=== PATIENT | female | born 1945 | race Caucasian/White ===

== ENCOUNTER 2022-05-02 18:10 | Emergency (ER) | payer OTHER, MEDICARE ==
[~2022-05-02] VITALS: Ht 157.5 cm; Wt 68.0 kg
[2022-05-02 18:22] VITALS: BP_SYST 133
--- NOTE | 2022-05-02 18:37 | NUR ---
PT B/B AMBULANCE FROM HOME FOR VIGINAL PAIN RADIATED TO LOWER ABDOMEN. PT IS A/OX4, SPEAKS FULL SENTENCES, FOLLOWS COMMAND, DENIES MESA AND DIZZINESS. NO SOB. BREATHING EVEN. SL ESTABLISHED ON RFA 20G. BLOOD DRAWN BY THE WAY.
[2022-05-02 19:28] LABS: BASOPHILS # (AUTO) 0.2 K/uL (0.0-0.2); BASOPHILS % (AUTO) 2.2 % (0.0-2.0); EOSINOPHILS # (AUTO) 0.3 K/uL (0.0-0.4); EOSINOPHILS % (AUTO) 2.9 % (0.0-4.0); HEMATOCRIT 33.5 % (36-48); HEMOGLOBIN 10.8 g/dL (12.0-16.0); LYMPHOCYTES # (AUTO) 2.5 K/uL (1.0-5.5); MEAN CORPUSCULAR HEMOGLOBIN 26 pg (27-31); MEAN CORPUSCULAR HGB CONC 32 % (32-36); MEAN CORPUSCULAR VOLUME 80 fL (79.0-98.0); MONOCYTES # (AUTO) 0.4 K/uL (0.0-1.0); MONOCYTES % (AUTO) 3.4 % (1.7-9.3); NEUTROPHILS # (AUTO) 7.5 K/uL (1.8-7.7); NEUTROPHILS % (AUTO) 68.5 % (40.0-70.0); PLATELET COUNT (AUTO) 299 K/uL (130-430); RED BLOOD CELL COUNT(AUTO) 4.19 MIL/uL (4.2-6.2); RED CELL DISTRIBUTION WIDTH 17.1 % (9.0-15.0)
[2022-05-02 19:32] LABS: ANION GAP 10 (5-15); CALCIUM 8.6 mg/dL (8.4-11.0); CHLORIDE 101 mmol/L (98-107); CREATININE 1.08 mg/dL (0.55-1.30); GLUCOSE 366 mg/dL (70-99); POTASSIUM 4.2 mmol/L (3.5-5.1); UREA NITROGEN, BLOOD 23 mg/dL (8-21)
[2022-05-02 19:37] LABS: ALANINE AMINOTRANSFERASE 28 U/L (12-78); ALBUMIN 3.5 g/dL (3.4-4.8); ASPARTATE AMINOTRANSFERASE 14 U/L (10-37); TOTAL BILIRUBIN 0.1 mg/dL (0.0-1.0)
[2022-05-02 20:32] LABS: BILIRUBIN,URINE NEGATIVE (NEGATIVE); BLOOD, URINE NEGATIVE (NEGATIVE); CLARITY/URINE CLEAR (CLEAR); COLOR,URINE YELLOW (YELLOW); GLUCOSE,URINE 3+ (NEGATIVE); KETONES,URINE NEGATIVE (NEGATIVE); NITRITE, URINE NEGATIVE (NEGATIVE); PH,URINE 5.5 (5.0-8.0); PROTEIN URINE NEGATIVE (NEGATIVE); UROBILINOGEN,URINE 0.2 (0.2-1.0)
[2022-05-02 20:43] LABS: LEUKOCYTE ESTERASE ,URINE TRACE (NEGATIVE)
[2022-05-02 20:44] LABS: BACTERIA,URINE FEW /HPF (None Seen); MUCUS,URINE None Seen /LPF (None Seen); RBC,URINE 0-3 /HPF (0-3)
[2022-05-02] MEDS ORDERED: CEPH-548 PO (21:08)
[2022-05-02] MEDS ORDERED: POLY17PO4 PO (21:08)
--- NOTE | 2022-05-02 21:51 | NUR ---
PT DIAPER WET, CHANGED AND PROVIDED CLEAN NEW DIAPER
--- NOTE | 2022-05-02 21:52 | NUR ---
PT PENDING DISHCHARGE, WAITING FOR RIDE
--- NOTE | 2022-05-02 22:30 | NUR ---
Patient resting quietly. No acute distress noted. Vital signs within normal range.
[2022-05-03 01:05] VITALS: BP_SYST 150
--- NOTE | 2022-05-03 01:05 | NUR ---
Patient given written and verbal discharge instructions and verbalizes understanding. ER MD discussed with patient the results and treatment provided. Patient in stable condition. ID arm band removed. IV catheter removed intact and dressing applied, no active bleeding. Rx of miralax & keflex given. Patient educated on pain management and to follow up with PMD. Pain Scale 0/10. Opportunity for questions provided and answered. Medication side effect fact sheet provided.
== END 2022-05-03 01:05 | disposition home or self-care (01) ==
LOC: SED 18:10
DX: N30.00 Acute cystitis without hematuria (principal); R10.30 Lower abdominal pain, unspecified; R30.0 Dysuria; E11.9 Type 2 diabetes mellitus without complications; E78.5 Hyperlipidemia, unspecified; Z88.1 Allergy status to other antibiotic agents; Z91.041 Radiographic dye allergy status; Z79.899 Other long term (current) drug therapy
CPT/HCPCS: 36415; 76376; 80053; 81000; 85025; 86886; 86900; 86901; 99284

== ENCOUNTER 2022-08-04 17:01 | Emergency (ER) | payer OTHER, MEDICARE ==
[~2022-08-04] VITALS: Ht 152.4 cm; Wt 68.0 kg
[~2022-08-04 17:01] MED LIST: CEPH-548 PO; POLY17PO4 PO
[2022-08-04 17:04] VITALS: BP_SYST 118
--- NOTE | 2022-08-04 17:08 | NUR ---
Patient triaged and placed in waiting room. VSS and patient appears in no acute distress at this time. Accompanied by BLS, awaiting available bed, and MD notified of need for MSE.
--- NOTE | 2022-08-04 17:54 | NUR ---
PT EVALUATED BY BECKY LOUIE, TAKEN TO WAITING ROOM WITH WALKER. PT WITH STEADY GAIT WITH USE OF WALKER
[2022-08-04] MEDS ORDERED: ONDANSETRON HCL 4 MG/2 ML VIAL IVP ONE (18:00)
[2022-08-04] MEDS ORDERED: NS 500 ML IV ONE (18:00)
[2022-08-04] MEDS ORDERED: MORPHINE 4 MG INJ. 4 MG/ML VIAL IVP ONE (18:00)
[2022-08-04 18:21] LABS: BASOPHILS # (AUTO) 0.1 K/uL (0.0-0.2); BASOPHILS % (AUTO) 0.6 % (0.0-2.0); EOSINOPHILS # (AUTO) 0.4 K/uL (0.0-0.4); EOSINOPHILS % (AUTO) 3.3 % (0.0-4.0); HEMOGLOBIN 10.6 g/dL (12.0-16.0); LYMPHOCYTES # (AUTO) 3.1 K/uL (1.0-5.5); LYMPHOCYTES % (AUTO) 26.8 % (20.5-51.5); MEAN CORPUSCULAR HEMOGLOBIN 23 pg (27-31); MEAN CORPUSCULAR HGB CONC 31 % (32-36); MEAN CORPUSCULAR VOLUME 75 fL (79.0-98.0); MONOCYTES # (AUTO) 0.6 K/uL (0.0-1.0); MONOCYTES % (AUTO) 5.5 % (1.7-9.3); NEUTROPHILS # (AUTO) 7.4 K/uL (1.8-7.7); NEUTROPHILS % (AUTO) 63.8 % (40.0-70.0); PLATELET COUNT (AUTO) 348 K/uL (130-430); RED BLOOD CELL COUNT(AUTO) 4.53 MIL/uL (4.2-6.2); RED CELL DISTRIBUTION WIDTH 17.3 % (9.0-15.0); WHITE BLOOD COUNT (AUTO) 11.6 K/uL (4.8-10.8)
[2022-08-04 18:29] LABS: ANION GAP 9 (5-15); CALCIUM 9.1 mg/dL (8.4-11.0); CHLORIDE 103 mmol/L (98-107); CREATININE 0.74 mg/dL (0.55-1.30); GLUCOSE 249 mg/dL (70-99); UREA NITROGEN, BLOOD 17 mg/dL (8-21)
[2022-08-04 18:35] LABS: ALANINE AMINOTRANSFERASE 23 U/L (12-78); ALBUMIN 3.4 g/dL (3.4-4.8); ASPARTATE AMINOTRANSFERASE 13 U/L (10-37); TOTAL BILIRUBIN 0.2 mg/dL (0.0-1.0)
--- NOTE | 2022-08-04 19:00 | NUR ---
Report received from day shift RN for continuity of care. Patient resting. VSS.
[2022-08-04] MEDS ORDERED: ONDA-8 TL (19:39)
[2022-08-04] MEDS ORDERED: ACET-2634 PO (19:39)
[2022-08-04] MEDS ORDERED: DOCU250C14 PO (19:39)
[2022-08-04] MEDS ORDERED: LIDO1ADH71 TD (19:39)
[2022-08-04] MEDS ORDERED: TRAM50TA2 PO ×2 (19:39→19:40)
[2022-08-04] MEDS ORDERED: HYDROcodone/ACETAMIN 5-325 MG TAB (NORCO/ VICODIN) PO ONE (20:30)
--- NOTE | 2022-08-05 03:10 | NUR ---
Patient ambulated from bed to restroom. Vital signs stable. Patient ok walking with assistance. Will continue to monitor. Awaiting transportation.
--- NOTE | 2022-08-05 04:52 | NUR ---
Called [facility] for update. Was told that [facility] to come take patient.
--- NOTE | 2022-08-05 05:01 | NUR ---
Report given to GAIL Monroe for continuity of care. Patient to go to [facility].
--- NOTE | 2022-08-05 05:02 | NUR ---
Patient given written and verbal discharge instructions and verbalizes understanding. ER MD discussed with patient the results and treatment provided. Patient in stable condition. ID arm band removed. IV catheter removed intact and dressing applied, no active bleeding. Patient discharged to [facility]. Opportunity for questions provided and answered. Medication side effect fact sheet provided.
[2022-08-05 05:25] VITALS: BP_SYST 179
== END 2022-08-05 05:25 | disposition home or self-care (01) ==
LOC: SED 17:01
DX: S70.01XA Contusion of right hip, initial encounter (principal); E11.9 Type 2 diabetes mellitus without complications; Z88.1 Allergy status to other antibiotic agents; Z91.041 Radiographic dye allergy status; Z79.899 Other long term (current) drug therapy; W18.30XA Fall on same level, unspecified, initial encounter; Y93.89 Activity, other specified; Y92.89 Other specified places as the place of occurrence of the external cause; Y99.8 Other external cause status
CPT/HCPCS: 36415; 70450-TC; 73502; 76376; 80053; 84484; 85025; 93005; 99285

== ENCOUNTER 2022-08-17 01:29 | Inpatient (IN) | payer OTHER, MEDICARE ==
[~2022-08-17] VITALS: Ht 152.4 cm; Wt 96.6 kg
[2022-08-17] VITALS (7 sets, daily range): BP systolic 123–162
[~2022-08-17 01:29] MED LIST changes: +ACET-2634 PO; +DOCU250C14 PO; +LIDO1ADH71 TD; +ONDA-8 TL; +TRAM50TA2 PO
--- NOTE | 2022-08-17 02:18 | NUR ---
[facility] [id number]. No rooms available at this time. Pt in waiting.
[2022-08-17] MEDS ORDERED: cefTRIAXone 1 GM IVPB PREMIX 50 ML IV ONE (03:15)
[2022-08-17 03:20] LABS: BASOPHILS % (AUTO) 0.4 % (0.0-2.0); EOSINOPHILS # (AUTO) 0.3 K/uL (0.0-0.4); EOSINOPHILS % (AUTO) 2.9 % (0.0-4.0); HEMATOCRIT 32.1 % (36-48); HEMOGLOBIN 9.9 g/dL (12.0-16.0); LYMPHOCYTES # (AUTO) 2.4 K/uL (1.0-5.5); LYMPHOCYTES % (AUTO) 23.6 % (20.5-51.5); MEAN CORPUSCULAR HEMOGLOBIN 23 pg (27-31); MEAN CORPUSCULAR HGB CONC 31 % (32-36); MEAN CORPUSCULAR VOLUME 75 fL (79.0-98.0); MONOCYTES # (AUTO) 0.7 K/uL (0.0-1.0); MONOCYTES % (AUTO) 6.8 % (1.7-9.3); NEUTROPHILS # (AUTO) 6.8 K/uL (1.8-7.7); NEUTROPHILS % (AUTO) 66.3 % (40.0-70.0); PLATELET COUNT (AUTO) 338 K/uL (130-430); RED BLOOD CELL COUNT(AUTO) 4.27 MIL/uL (4.2-6.2); WHITE BLOOD COUNT (AUTO) 10.3 K/uL (4.8-10.8)
--- NOTE | 2022-08-17 03:38 | NUR ---
Report given to FATIMAH Watts. Pt placed in bed 6.
[2022-08-17 03:40] LABS: ANION GAP 13 (5-15); CALCIUM 8.7 mg/dL (8.4-11.0); CHLORIDE 104 mmol/L (98-107); CREATININE 0.67 mg/dL (0.55-1.30); GLUCOSE 283 mg/dL (70-99); UREA NITROGEN, BLOOD 17 mg/dL (8-21)
[2022-08-17 03:45] LABS: ALANINE AMINOTRANSFERASE 26 U/L (12-78); ALBUMIN 3.3 g/dL (3.4-4.8); ASPARTATE AMINOTRANSFERASE 15 U/L (10-37); TOTAL BILIRUBIN 0.2 mg/dL (0.0-1.0)
[2022-08-17] MEDS ORDERED: NACL 0.9% 1,000 ML IV ONE (04:45)
[2022-08-17] MEDS ORDERED: KETOROLAC TROMETHAMINE 30 MG VIAL IVP ONE (05:00)
--- NOTE | 2022-08-17 05:24 | NUR ---
Admit bed requested Patient will be admitted to care of . Admitted to Telemetry unit. Diagnosis Pneumonia, Sepsis Inpatient (Yes or No) Yes Observation (Yes or No) No Orientation concerns or request close to nursing station (Yes or No) No Covid Status Negative On vent or bipap No Isolation requirements Standard Needs a sitter No From Home (Yes or if No enter name of facility) Yes Requires Dialysis (Yes or No) No Med Rec Completed (Yes of No) Yes
[2022-08-17] MEDS: INSULIN REGULAR, HUMAN 100 UNITS/ML, 3 ML VIAL (humuLIN R) SUBCUT PRN ×3 (07:06→16:47)
--- NOTE | 2022-08-17 07:23 | NUR ---
Report given to day shift RN for continuity of care. Patient stable condition.
[2022-08-17 07:54] LABS: BILIRUBIN,URINE NEGATIVE (NEGATIVE); BLOOD, URINE NEGATIVE (NEGATIVE); CLARITY/URINE CLEAR (CLEAR); COLOR,URINE YELLOW (YELLOW); GLUCOSE,URINE 3+ (NEGATIVE); KETONES,URINE TRACE (NEGATIVE); LEUKOCYTE ESTERASE ,URINE NEGATIVE (NEGATIVE); NITRITE, URINE NEGATIVE (NEGATIVE); PROTEIN URINE NEGATIVE (NEGATIVE); UROBILINOGEN,URINE 0.2 (0.2-1.0)
--- NOTE | 2022-08-17 08:08 | NUR ---
ON DUTY RECEIVED THIS PT A/OX4, NO ACUTE DISTRESS. PT WAS ADMITED TO TELE. PT WALKED TO BATH @0745 IN STEADY GAIT. ROOM OBTAINED 119B. PT WAS SEND TO FLOOR IN [facility] WITH EMT ANJALI.
[2022-08-17 08:51] LABS: BACTERIA,URINE FEW /HPF (None Seen); MUCUS,URINE 1+ /LPF (None Seen); RBC,URINE 0-3 /HPF (0-3)
[2022-08-17] MEDS ORDERED: TRAZ-250 PO (09:58)
[2022-08-17] MEDS ORDERED: VENL37.55 PO (09:59)
[2022-08-17] MEDS ORDERED: OLAN5TAB3 PO (10:00)
[2022-08-17] MEDS ORDERED: CLOP75TA32 PO (10:01)
[2022-08-17] MEDS ORDERED: HYDR-3917 PO (10:02)
[2022-08-17] MEDS ORDERED: MOM PO (10:03)
[2022-08-17] MEDS ORDERED: MECL-225 PO (10:05)
[2022-08-17] MEDS ORDERED: LORA-259 PO (10:05)
[2022-08-17] MEDS ORDERED: INSU100V9 SQ (10:07)
[2022-08-17] MEDS ORDERED: LIP80 PO (10:07)
[2022-08-17] MEDS ORDERED: ASPI-858 PO (10:08)
[2022-08-17] MEDS ORDERED: ACET325T PO (10:08)
[2022-08-17] MEDS ORDERED: ACET325C6 PO (10:09)
[2022-08-17] MEDS ORDERED: ALBMDI INH (10:12)
--- NOTE | 2022-08-17 10:58 | NUR ---
CALLED LAB S/W DOROTHY MARIEE HAS LEFT OVER URINE AND WILL BE RUN FOR URINE CULTURE. DR. MELLO ESCOBAR. Addendum: 08/17/22 at 1814 by [facility] Giuliano Frazier RN RN AT 1600 SENT ADDITIONAL URINE TO LAB TO COMPLETE URINE CULTURE TEST.
[2022-08-17] MEDS ORDERED: NALOXONE HCL 0.4 MG/ML AMP (NARCAN) IVP PRN (11:00)
[2022-08-17] MEDS ORDERED: LORazepam 1 MG TABLET PO PRN (11:00)
[2022-08-17] MEDS ORDERED: ASPIRIN 81 MG TAB.CHEW PO ONE (11:00)
[2022-08-17] MEDS ORDERED: ALBUTEROL MDI INHALATION 8 GM INH INH PRN (11:00)
[2022-08-17] MEDS ORDERED: ASPIRIN 325 MG TABLET PO ONE (11:00)
[2022-08-17] MEDS ORDERED: POLYETHYLENE GLYCOL 3350, 17 GM/ POWD.PACK PO PRN (11:00)
[2022-08-17] MEDS ORDERED: ACETAMINOPHEN 325 MG TABLET PO PRN ×2 (11:00)
[2022-08-17] MEDS ORDERED: MILK OF MAGNESIA 30 ML UDC PO ONE (11:15)
[2022-08-17] MEDS ORDERED: CLOPIDOGREL BISULFATE 75 MG TABLET PO ONE (11:15)
[2022-08-17] MEDS ORDERED: Effexor XR 37.5 MG PO ONE (11:15)
[2022-08-17] MEDS ORDERED: OLANZapine 5 MG TABLET PO ONE (11:30)
[2022-08-17] MEDS ORDERED: ALBUTEROL SULFATE 0.083% 2.5 MG/3 ML VIAL.NEB INH PRN (11:30)
[2022-08-17] MEDS: cefTRIAXone 1 GM in D5W 50 ML IV SCH (11:30)
[2022-08-17] MEDS: HYDROcodone/ACETAMIN 5-325 MG TAB (NORCO/ VICODIN) PO PRN (12:08)
[2022-08-17 12:10] LABS: TOTAL IRON BIND. CAPACITY 343 ug/dL (250-450)
[2022-08-17] MEDS: AZITHROMYCIN 500 MG in NS 250 ML IV SCH (12:20)
--- NOTE | 2022-08-17 18:14 | NUR ---
CLOSING NOTE: PT IS A/A/OX4. ADMITTED PER PROTOCOL. ON RA SATURATING 98%, NO DISTRESS NOTED. ANTIBIOTIC THERAPY ORDERED. ALL CARE NEEDS MET THROUGHOUT THE SHIFT. FALL PROTOCOL. CALL LIGHT W/IN REACH. BED IN LOW POSITION. WILL ENDORSE CARE TO PM NURSE.
[2022-08-17] MEDS: INSULIN GLARGINE 100 UNITS/ML, 10 ML VIAL SUBCUT SCH (21:16)
[2022-08-17] MEDS: traZODone HCL 50 MG TABLET (DESYREL) PO SCH (21:18)
[2022-08-17] MEDS: ATORVASTATIN 20 MG TABLET PO SCH (21:18)
[2022-08-18] VITALS: BP_SYST 131
[2022-08-18 04:00] VITALS: BP_SYST 127
[2022-08-18] MEDS: INSULIN REGULAR, HUMAN 100 UNITS/ML, 3 ML VIAL (humuLIN R) SUBCUT PRN ×3 (06:35→17:13)
--- NOTE | 2022-08-18 07:25 | NUR ---
OPENING NOTE; PT RESTING IN BED, BREATHING EVEN AND NON-LABORED. DENIES ANY PAIN OR DISCOMFORT. BED IS LOCKED AND AT LOW POSITION. CALL LIGHT WITHIN REACH. BED ALARM ON. ENCOURAGED TO USE CALL LIGHT FOR ASSISTANCE. WILL CONT TO MONITOR.
--- NOTE | 2022-08-18 07:50 | NUR ---
PT LEFT FOR 1ST PART OF STRESS TEST. Addendum: 08/18/22 at 1842 by Shelly Brice RN WRONG PATIENT
[2022-08-18 07:55] LABS: BASOPHILS # (AUTO) 0.1 K/uL (0.0-0.2); BASOPHILS % (AUTO) 0.6 % (0.0-2.0); EOSINOPHILS # (AUTO) 0.3 K/uL (0.0-0.4); EOSINOPHILS % (AUTO) 3.2 % (0.0-4.0); HEMATOCRIT 34.8 % (36-48); HEMOGLOBIN 10.9 g/dL (12.0-16.0); LYMPHOCYTES % (AUTO) 19.7 % (20.5-51.5); MEAN CORPUSCULAR HEMOGLOBIN 24 pg (27-31); MEAN CORPUSCULAR HGB CONC 31 % (32-36); MEAN CORPUSCULAR VOLUME 76 fL (79.0-98.0); MONOCYTES # (AUTO) 0.5 K/uL (0.0-1.0); MONOCYTES % (AUTO) 4.9 % (1.7-9.3); NEUTROPHILS # (AUTO) 7.1 K/uL (1.8-7.7); NEUTROPHILS % (AUTO) 71.6 % (40.0-70.0); PLATELET COUNT (AUTO) 320 K/uL (130-430); RED BLOOD CELL COUNT(AUTO) 4.59 MIL/uL (4.2-6.2); RED CELL DISTRIBUTION WIDTH 17.3 % (9.0-15.0); WHITE BLOOD COUNT (AUTO) 9.9 K/uL (4.8-10.8)
[2022-08-18 08:00] VITALS: BP_SYST 117
[2022-08-18 08:06] LABS: ALANINE AMINOTRANSFERASE 31 U/L (12-78); ALBUMIN 3.2 g/dL (3.4-4.8); ANION GAP 11 (5-15); ASPARTATE AMINOTRANSFERASE 21 U/L (10-37); CALCIUM 8.8 mg/dL (8.4-11.0); CHLORIDE 106 mmol/L (98-107); CREATININE 0.65 mg/dL (0.55-1.30); GLUCOSE 232 mg/dL (70-99); TOTAL BILIRUBIN 0.3 mg/dL (0.0-1.0); UREA NITROGEN, BLOOD 11 mg/dL (8-21)
[2022-08-18] MEDS: MILK OF MAGNESIA 30 ML UDC PO SCH (08:41)
[2022-08-18] MEDS: ASPIRIN 81 MG TAB.CHEW PO SCH (08:41)
[2022-08-18] MEDS: CLOPIDOGREL BISULFATE 75 MG TABLET PO SCH (08:41)
[2022-08-18] MEDS: OLANZapine 5 MG TABLET PO SCH (08:42)
[2022-08-18] MEDS: Effexor XR 37.5 MG PO SCH (09:34)
--- NOTE | 2022-08-18 11:00 | NUR ---
NOTES; PT AMBULATES TO BATHROOM WITH ASSISTANCE OF REGISTERED PHARMACY TECHNICIAN. STEADY GAIT.
[2022-08-18] MEDS: cefTRIAXone 1 GM in D5W 50 ML IV SCH (11:38)
[2022-08-18] MEDS: AZITHROMYCIN 500 MG in NS 250 ML IV SCH (11:42)
[2022-08-18 13:16] VITALS: BP_SYST 146
[2022-08-18] MEDS: HYDROcodone/ACETAMIN 5-325 MG TAB (NORCO/ VICODIN) PO PRN ×2 (14:08→22:00)
--- NOTE | 2022-08-18 16:00 | NUR ---
MD ROUNDS; AT BEDSIDE, ASSESSING PT
--- NOTE | 2022-08-18 17:20 | NUR ---
NEW PIV TO LEFT HAND 24G. PREVIOUS IV WAS LEAKING. PT TOLERATED WELL. FLUSHED WITH 10CC NS AND GOOD BLOOD RETURN NOTED. WILL CONT TO MONITOR
[2022-08-18 18:43] VITALS: BP_SYST 145
--- NOTE | 2022-08-18 18:45 | NUR ---
CLOSING NOTE; PT RESTING IN BED, BREATHING EVEN AND NON-LABORED. IV KEPT PATENT AND INTACT. NO IV INFILTRATION OR INFECTION NOTED. BED IS LOCKED AND AT LOW POSITION. CALL LIGHT WITHIN REACH. SAFETY PRECAUTION IN PLACE. WILL ENDORSE CARE TO CEMENT MIXER NURSE.
[2022-08-18 20:00] VITALS: BP_SYST 135
[2022-08-18] MEDS: traZODone HCL 50 MG TABLET (DESYREL) PO SCH (21:05)
[2022-08-18] MEDS: ATORVASTATIN 20 MG TABLET PO SCH (21:06)
[2022-08-18] MEDS: MUPIROCIN 2% TOPICAL OINTMENT 22 GM NS SCH (21:06)
[2022-08-18] MEDS: INSULIN GLARGINE 100 UNITS/ML, 10 ML VIAL SUBCUT SCH (21:08)
[2022-08-19] VITALS: BP_SYST 130
[2022-08-19 02:06] LABS: FOLATE (FOLIC ACID) 18.3 ng/mL (>3.0)
[2022-08-19] MEDS: INSULIN REGULAR, HUMAN 100 UNITS/ML, 3 ML VIAL (humuLIN R) SUBCUT PRN ×2 (06:36→12:17)
[2022-08-19] MEDS: HYDROcodone/ACETAMIN 5-325 MG TAB (NORCO/ VICODIN) PO PRN ×3 (08:49→13:36)
[2022-08-19] MEDS: MILK OF MAGNESIA 30 ML UDC PO SCH (08:51)
[2022-08-19] MEDS: OLANZapine 5 MG TABLET PO SCH (09:18)
[2022-08-19] MEDS: CLOPIDOGREL BISULFATE 75 MG TABLET PO SCH (09:19)
[2022-08-19] MEDS: Effexor XR 37.5 MG PO SCH (09:20)
[2022-08-19] MEDS: ASPIRIN 81 MG TAB.CHEW PO SCH (09:21)
[2022-08-19] MEDS: MUPIROCIN 2% TOPICAL OINTMENT 22 GM NS SCH (09:21)
[2022-08-19 11:43] VITALS: BP_SYST 144
[2022-08-19] MEDS: AZITHROMYCIN 500 MG in NS 250 ML IV SCH (12:22)
[2022-08-19] MEDS: cefTRIAXone 1 GM in D5W 50 ML IV SCH (12:22)
[2022-08-19] MEDS ORDERED: DOXY100C5 PO (13:41)
[2022-08-19 13:58] VITALS: BP_SYST 144
--- NOTE | 2022-08-19 16:29 | NUR ---
CM: Late entry: faxed referral to [facility] attn Andrew tel # [phone], fax # [phone]. The patient is accepted , Andrew will call patient once received the auth from [facility].
== END 2022-08-19 15:50 | disposition home health service (06) | DRG 202 ==
LOC: SED 01:29 → STU 04:50
PROVIDERS: ADMIT Internal Medicine; ATTEND Internal Medicine
DX: J45.901 Unspecified asthma with (acute) exacerbation (principal); J18.9 Pneumonia, unspecified organism; N39.0 Urinary tract infection, site not specified; E44.1 Mild protein-calorie malnutrition; Z68.41 Body mass index [BMI] 40.0-44.9, adult; Z20.822 Contact with and (suspected) exposure to COVID-19; E78.5 Hyperlipidemia, unspecified; E78.00 Pure hypercholesterolemia, unspecified; D64.9 Anemia, unspecified; Z86.73 Personal history of transient ischemic attack (TIA), and cerebral infarction without residual deficits; Z88.8 Allergy status to other drugs, medicaments and biological substances; Z88.1 Allergy status to other antibiotic agents; Z91.041 Radiographic dye allergy status; Z91.013 Allergy to seafood; Z79.899 Other long term (current) drug therapy; Z90.49 Acquired absence of other specified parts of digestive tract; Z90.710 Acquired absence of both cervix and uterus
CPT/HCPCS: 36415; 71045; 71250-TC; 76376; 80053; 81000; 82607; 82746; 82962; 83540; 83550; 83605; 83880; 84484; 85025; 85379; 85610-TC; 85730-TC; 87040; 87081; 87086; 93005; 93970; 96365; 96375; 97116-GP; 97163-GP; 99291; G0378; J0456; J0696; J1815; J1885; J7050; J7060

== ENCOUNTER 2022-08-23 22:47 | Emergency (ER) | payer OTHER, MEDICARE ==
[~2022-08-23] VITALS: Ht 152.4 cm; Wt 72.6 kg
[2022-08-23 22:47] VITALS: BP_SYST 145
[~2022-08-23 22:47] MED LIST changes: -ACET-2634 PO; +ACET325C6 PO; +ACET325T PO; +ALBMDI INH; +ASPI-858 PO; -CEPH-548 PO; +CLOP75TA32 PO; -DOCU250C14 PO; +DOXY100C5 PO; +HYDR-3917 PO; +INSU100V9 SQ; -LIDO1ADH71 TD; +LIP80 PO; +LORA-259 PO; +MECL-225 PO; +MOM PO; +OLAN5TAB3 PO; -ONDA-8 TL; -TRAM50TA2 PO; +TRAZ-250 PO; +VENL37.55 PO
--- NOTE | 2022-08-23 23:24 | NUR ---
Patient placed in ER bed 7. Bed in lowest position, side rails up.
--- NOTE | 2022-08-23 23:40 | NUR ---
Dr. Ledesma at bedside examining the patient.
[2022-08-23 23:41] LABS: BASOPHILS # (AUTO) 0.2 K/uL (0.0-0.2); BASOPHILS % (AUTO) 1.9 % (0.0-2.0); EOSINOPHILS # (AUTO) 0.4 K/uL (0.0-0.4); EOSINOPHILS % (AUTO) 2.7 % (0.0-4.0); HEMATOCRIT 32.2 % (36-48); HEMOGLOBIN 9.9 g/dL (12.0-16.0); LYMPHOCYTES # (AUTO) 2.4 K/uL (1.0-5.5); LYMPHOCYTES % (AUTO) 18.6 % (20.5-51.5); MEAN CORPUSCULAR HEMOGLOBIN 23 pg (27-31); MEAN CORPUSCULAR HGB CONC 31 % (32-36); MEAN CORPUSCULAR VOLUME 75 fL (79.0-98.0); MONOCYTES # (AUTO) 0.5 K/uL (0.0-1.0); MONOCYTES % (AUTO) 3.8 % (1.7-9.3); NEUTROPHILS # (AUTO) 9.6 K/uL (1.8-7.7); PLATELET COUNT (AUTO) 365 K/uL (130-430); RED BLOOD CELL COUNT(AUTO) 4.29 MIL/uL (4.2-6.2); RED CELL DISTRIBUTION WIDTH 17.7 % (9.0-15.0); WHITE BLOOD COUNT (AUTO) 13.1 K/uL (4.8-10.8)
[2022-08-23 23:58] LABS: ANION GAP 6 (5-15); CALCIUM 9.4 mg/dL (8.4-11.0); CHLORIDE 106 mmol/L (98-107); CREATININE 0.87 mg/dL (0.55-1.30); GLUCOSE 274 mg/dL (70-99); UREA NITROGEN, BLOOD 22 mg/dL (8-21)
[2022-08-24 00:02] LABS: ALANINE AMINOTRANSFERASE 21 U/L (12-78); ALBUMIN 3.3 g/dL (3.4-4.8); ASPARTATE AMINOTRANSFERASE 11 U/L (10-37); LIPASE 67 U/L (73-393); TOTAL BILIRUBIN 0.2 mg/dL (0.0-1.0)
--- NOTE | 2022-08-24 00:34 | NUR ---
Portable x-ray done at bedside.
[2022-08-24 01:33] LABS: BILIRUBIN,URINE NEGATIVE (NEGATIVE); BLOOD, URINE NEGATIVE (NEGATIVE); CLARITY/URINE CLEAR (CLEAR); COLOR,URINE YELLOW (YELLOW); GLUCOSE,URINE 2+ (NEGATIVE); KETONES,URINE NEGATIVE (NEGATIVE); LEUKOCYTE ESTERASE ,URINE TRACE (NEGATIVE); NITRITE, URINE NEGATIVE (NEGATIVE); PH,URINE 5.5 (5.0-8.0); PROTEIN URINE NEGATIVE (NEGATIVE); UROBILINOGEN,URINE 0.2 (0.2-1.0)
[2022-08-24 01:54] LABS: BACTERIA,URINE FEW /HPF (None Seen); MUCUS,URINE None Seen /LPF (None Seen); WBC,URINE 0-3 /HPF (0-3)
[2022-08-24] MEDS ORDERED: KETOROLAC TROMETHAMINE 15 MG VIAL IVP ONE (02:45)
[2022-08-24] MEDS ORDERED: CEPH-548 PO (04:29)
[2022-08-24] MEDS ORDERED: ACET-2634 PO (04:29)
[2022-08-24 06:00] VITALS: BP_SYST 141
--- NOTE | 2022-08-24 07:14 | NUR ---
Report given and care transferred to [facility] for continuity of care.
--- NOTE | 2022-08-24 07:16 | NUR ---
received report from bebeto bolton for continue of care of pt. pt noted ambulating to restroom with steady gait. no acute distress. breathing even and unlabored. no changes at this time
--- NOTE | 2022-08-24 08:31 | NUR ---
[facility] ambulance in ed to transfer back to [facility]. called facility and spoke with jovanna, made aware of pt's arrival back to facility. pt awake, verbally responsive and denies pain at this time. no acute distress noted. breathing even and unlabored
--- NOTE | 2022-08-24 08:35 | NUR ---
discharge instructions reviewed with pt,pt verbalized understanding. denies any questions. pt left via gurney and x 2 emt with no distress
== END 2022-08-24 08:34 | disposition home or self-care (01) ==
LOC: SED 22:47
DX: N39.0 Urinary tract infection, site not specified (principal); R10.31 Right lower quadrant pain; D64.9 Anemia, unspecified; D72.829 Elevated white blood cell count, unspecified; E11.9 Type 2 diabetes mellitus without complications; Z88.1 Allergy status to other antibiotic agents; Z91.041 Radiographic dye allergy status; Z79.4 Long term (current) use of insulin; Z79.899 Other long term (current) drug therapy
CPT/HCPCS: 36415; 71045; 76376; 80053; 81000; 83690; 85025; 99285

== ENCOUNTER 2022-09-19 03:45 | Emergency (ER) | payer OTHER, MEDICARE ==
[~2022-09-19] VITALS: Ht 152.4 cm; Wt 72.6 kg
[~2022-09-19 03:45] MED LIST changes: +ACET-2634 PO; +CEPH-548 PO
[2022-09-19 03:50] VITALS: BP_SYST 144
--- NOTE | 2022-09-19 03:51 | NUR ---
Placed in room [address] monitor, blood pressure machine and pulse oximeter. To gown for exam. Side rails up. Report given to Namrata SHERIDAN(reg).
--- NOTE | 2022-09-19 03:53 | NUR ---
ER at bedside examining patient.
--- NOTE | 2022-09-19 04:01 | NUR ---
pt c/o sob at facility. pt sat 96% on room air. pt c/o chest pain with sob. pt has chronic back pain. pt a/o x 4
[2022-09-19 05:01] LABS: BASOPHILS # (AUTO) 0.1 K/uL (0.0-0.2); BASOPHILS % (AUTO) 0.9 % (0.0-2.0); EOSINOPHILS # (AUTO) 0.4 K/uL (0.0-0.4); EOSINOPHILS % (AUTO) 4.1 % (0.0-4.0); HEMATOCRIT 31.3 % (36-48); HEMOGLOBIN 9.7 g/dL (12.0-16.0); LYMPHOCYTES # (AUTO) 3.4 K/uL (1.0-5.5); LYMPHOCYTES % (AUTO) 31.8 % (20.5-51.5); MEAN CORPUSCULAR HEMOGLOBIN 23 pg (27-31); MEAN CORPUSCULAR HGB CONC 31 % (32-36); MEAN CORPUSCULAR VOLUME 75 fL (79.0-98.0); MONOCYTES # (AUTO) 0.7 K/uL (0.0-1.0); MONOCYTES % (AUTO) 6.2 % (1.7-9.3); NEUTROPHILS # (AUTO) 6.1 K/uL (1.8-7.7); PLATELET COUNT (AUTO) 350 K/uL (130-430); RED BLOOD CELL COUNT(AUTO) 4.17 MIL/uL (4.2-6.2); WHITE BLOOD COUNT (AUTO) 10.7 K/uL (4.8-10.8)
[2022-09-19 05:16] LABS: ANION GAP 9 (5-15); CALCIUM 8.7 mg/dL (8.4-11.0); CHLORIDE 104 mmol/L (98-107); CREATININE 0.77 mg/dL (0.55-1.30); GLUCOSE 210 mg/dL (70-99); UREA NITROGEN, BLOOD 16 mg/dL (8-21)
[2022-09-19 05:22] LABS: ALANINE AMINOTRANSFERASE 26 U/L (12-78); ALBUMIN 3.1 g/dL (3.4-4.8); ASPARTATE AMINOTRANSFERASE 14 U/L (10-37); TOTAL BILIRUBIN 0.2 mg/dL (0.0-1.0)
[2022-09-19] MEDS ORDERED: DEXAMETHASONE SOD PHOSPHATE 10 MG/ML VIAL IVP ONE (05:30)
[2022-09-19 05:45] LABS: BILIRUBIN,URINE NEGATIVE (NEGATIVE); BLOOD, URINE NEGATIVE (NEGATIVE); COLOR,URINE YELLOW (YELLOW); GLUCOSE,URINE NEGATIVE (NEGATIVE); KETONES,URINE NEGATIVE (NEGATIVE); LEUKOCYTE ESTERASE ,URINE TRACE (NEGATIVE); NITRITE, URINE NEGATIVE (NEGATIVE); PROTEIN URINE NEGATIVE (NEGATIVE); UROBILINOGEN,URINE 0.2 (0.2-1.0)
--- NOTE | 2022-09-19 05:47 | NUR ---
pt ambulated to bathroom no shortness of breath
[2022-09-19 05:59] LABS: CLARITY/URINE HAZY (CLEAR)
[2022-09-19 06:00] LABS: BACTERIA,URINE FEW /HPF (None Seen); RBC,URINE 0-3 /HPF (0-3)
[2022-09-19] MEDS ORDERED: CEPH-548 PO (06:11)
[2022-09-19 09:53] VITALS: BP_SYST 170
--- NOTE | 2022-09-19 09:59 | NUR ---
Patient given written and verbal discharge instructions and verbalizes understanding. ER MD Vega discussed with patient the results and treatment provided. Patient in stable condition. ID arm band removed. IV catheter removed intact and dressing applied, no active bleeding. Rx of cephalexin sent to [facility]. Patient educated on pain management and to follow up with PMD. Opportunity for questions provided and answered. Medication side effect fact sheet provided. Patient a&ox4 awaiting, patient ambulates without assistance, patient denies dizziness, patient seated on bed awaiting transport, ambulance transport ETA 1030.
== END 2022-09-19 09:59 | disposition home or self-care (01) ==
LOC: SED 03:45
DX: R06.02 Shortness of breath (principal); R05.9 Cough, unspecified; E11.9 Type 2 diabetes mellitus without complications; Z88.1 Allergy status to other antibiotic agents; Z91.041 Radiographic dye allergy status; Z79.4 Long term (current) use of insulin; Z79.899 Other long term (current) drug therapy; Z20.822 Contact with and (suspected) exposure to COVID-19
CPT/HCPCS: 99285; 96374; 71250; 71045; 87426; 80053; 81000; 85025; 87086; 84484; 36415; 93005; 76376; 87804 ×2; J1100

== ENCOUNTER 2022-09-20 00:27 | Emergency (ER) | payer OTHER, MEDICARE ==
[~2022-09-20] VITALS: Ht 152.4 cm; Wt 77.1 kg
[2022-09-20 00:34] VITALS: BP_SYST 155
[2022-09-20] MEDS ORDERED: NACL 0.9% 1,000 ML IV ONE (00:45)
[2022-09-20] MEDS ORDERED: INSULIN REGULAR, HUMAN 10 UNITS/0.1 ML, 3 ML VIAL IVP ONE (00:45)
[2022-09-20 01:24] LABS: HEMOGLOBIN 10.1 g/dL (12.0-16.0); MEAN CORPUSCULAR HEMOGLOBIN 23 pg (27-31); MEAN CORPUSCULAR HGB CONC 30 % (32-36); RED BLOOD CELL COUNT(AUTO) 4.44 MIL/uL (4.2-6.2); WHITE BLOOD COUNT (AUTO) 14.6 K/uL (4.8-10.8)
[2022-09-20 01:29] LABS: BASOPHILS % (AUTO) 0.3 % (0.0-2.0); HEMATOCRIT 33.2 % (36-48); LYMPHOCYTES # (AUTO) 2.2 K/uL (1.0-5.5); LYMPHOCYTES % (AUTO) 15.1 % (20.5-51.5); MEAN CORPUSCULAR VOLUME 75 fL (79.0-98.0); MONOCYTES % (AUTO) 6.8 % (1.7-9.3); NEUTROPHILS # (AUTO) 11.3 K/uL (1.8-7.7); NEUTROPHILS % (AUTO) 77.8 % (40.0-70.0); PLATELET COUNT (AUTO) 473 K/uL (130-430)
[2022-09-20 01:45] LABS: ACETAMINOPHEN < 1 ug/mL (1-30); ALANINE AMINOTRANSFERASE 33 U/L (12-78); ALBUMIN 3.6 g/dL (3.4-4.8); ALCOHOL, BLOOD < 3 mg/dL (<10); ANION GAP 13 (5-15); ASPARTATE AMINOTRANSFERASE 16 U/L (10-37); CHLORIDE 99 mmol/L (98-107); CREATININE 1.08 mg/dL (0.55-1.30); GLUCOSE 313 mg/dL (70-99); TOTAL BILIRUBIN 0.1 mg/dL (0.0-1.0); UREA NITROGEN, BLOOD 22 mg/dL (8-21)
[2022-09-20] MEDS ORDERED: LORazepam 2 MG/ML VIAL IVP ONE ×2 (02:15→22:30)
--- NOTE | 2022-09-20 02:42 | NUR ---
Placed in room 01 . Placed on compliance monitor, blood pressure machine and pulse oximeter. To gown for exam. Side rails up. Report given to FATIMAH MERINO
--- NOTE | 2022-09-20 02:55 | NUR ---
FIRST CONTACT WITH PT. ASSESSMENT COMPLETED. PT MEDICATED PER PREVIOUS ORDER. PT COOPERATIVE AT THIS TIME WITH NO COMPLAINTS.
--- NOTE | 2022-09-20 03:15 | NUR ---
dr campos directed not to give insulin
--- NOTE | 2022-09-20 04:00 | NUR ---
pt up to bedside comode. urine sample collected.
[2022-09-20 05:55] LABS: BENZODIAZEPINE, URINE POSITIVE (NEG <=150)
[2022-09-20 05:56] LABS: OPIATE, URINE POSITIVE (NEG <=100)
[2022-09-20 05:57] LABS: BARBITURATE, URINE NEGATIVE (NEG <=200); CANNABINOID, URINE NEGATIVE (NEG <=50); COCAINE, URINE NEGATIVE (NEG <=150); METHAMPHETAMINES SCREEN,URINE NEGATIVE (NEG <=500); PHENCYCLIDINE SCREEN,URINE NEGATIVE (NEG <=25); UR TRICYCLIC ANTIDEPRESSANTS NEGATIVE (NEG <=300); URINE AMPHETAMINE NEGATIVE (NEG <=500); URINE METHADONE NEGATIVE (NEG <=200); URINE OXYCODONE SCREEN NEGATIVE (NEG <=100); URINE PROPOXYPHENE SCREEN NEGATIVE (NEG <=300)
[2022-09-20] MEDS ORDERED: LORazepam 1 MG TABLET PO ONE (15:15)
[2022-09-20] MEDS ORDERED: IBUPROFEN 600 MG TABLET PO ONE (15:15)
--- NOTE | 2022-09-20 19:20 | NUR ---
PT RESTING NAD, EVEN UNLABORED RESPIRATIONS VSS SAFETY PERCAUTIONS IN PLACE PT ASKED FOR A COMB, I LET THE PT KNOW I WILL BE ABLE TO ASSIST WITH COMBING
--- NOTE | 2022-09-20 19:30 | NUR ---
report from Jag SHERIDAN
--- NOTE | 2022-09-20 19:30 | NUR ---
report given to me from Jag RN , from report Jag stated she was suicidal came in and the pt stated according to report she was tired of living. pt seems pleasant is asked about where she will be placed and asked for a comb. I let the pt know I will assist with her hair combing due to her situation and also will update her on any information I get. pt nad, even unlabored respirations, safety percautions up.
--- NOTE | 2022-09-20 21:31 | NUR ---
PT ASKED ME TO CONNECT CELL PHONE TO COMPUTER PROGRAMMER ANALYST, CELL PHONE AT NURSES STATION CHARGING.
[2022-09-20] MEDS ORDERED: OLANZapine IntraMuscular 10 MG VIAL (FOR I.M. INJECTION ONLY) IM ONE (22:30)
[2022-09-20] MEDS ORDERED: traZODone HCL 50 MG TABLET (DESYREL) PO PRN (22:30)
[2022-09-21] MEDS ORDERED: OLANZapine 5 MG TABLET ONE (00:06)
[2022-09-21] MEDS ORDERED: traZODone HCL 50 MG TABLET (DESYREL) ONE (00:09)
--- NOTE | 2022-09-21 03:00 | NUR ---
pt asleep no changes, safety rails up nad, even unlabored respirations.
[2022-09-21] MEDS ORDERED: PROCHLORPERAZINE EDISYLATE 10 MG/2 ML VIAL ONE (03:31)
[2022-09-21] MEDS ORDERED: OLANZapine 5 MG TABLET PO ONE (05:15)
--- NOTE | 2022-09-21 05:49 | NUR ---
pt asleep no changes even and unlabored respirations.
--- NOTE | 2022-09-21 06:00 | NUR ---
assisted pt to bedside commode and pt went back to bed by self, adjusted sheets for pt's comfort. connected to vs monitor.
--- NOTE | 2022-09-21 06:54 | NUR ---
pt asleep no changes safety rails up vss.
--- NOTE | 2022-09-21 07:39 | NUR ---
received report from pavel bolton. pt noted awake, alert and verbally responsive. breathnig even and unlaboed. no acute distress noted. safety measures in place.
[2022-09-21 09:20] VITALS: BP_SYST 128
--- NOTE | 2022-09-21 09:21 | NUR ---
pt resting in bed in position of comfort. breathing even and unlabored, chest rise and fall noted. no acute distress noted. safety measures in place. pt remains within view from nurse view. comfort measures provided and safety measures in place. no changes noted at this time.
--- NOTE | 2022-09-21 09:22 | NUR ---
pt verbalizing "i dont feel like i want to hurt myself or that i want to be anymore. i just want help. i want to leave here so i can get help.".
--- NOTE | 2022-09-21 11:14 | NUR ---
assisted pt to bedside commode. pt awake a/o x3 and verbally responsive. pt unable to recall why she was brought here or when. re-oriented pt to environment. Pt in pleasant and cooperative mood. speaks clear and full sentences. safety measures in place. no changes at this time
--- NOTE | 2022-09-21 11:23 | NUR ---
PET AT BEDIDE
[2022-09-21] MEDS ORDERED: OLANZapine IntraMuscular 10 MG VIAL (FOR I.M. INJECTION ONLY) IM ONE (12:15)
--- NOTE | 2022-09-21 12:21 | NUR ---
pt noted to become aggitated, stating "im so scared i need medicine". md magdaleno made aware. medication administered as per emar, tolerated well. pt made comfortable, safety measures in place. pt remains within nurses view, no further changes at this time
--- NOTE | 2022-09-21 13:26 | NUR ---
pt noted resting in position of comfort in bed. breathing even and unlabored, rise and fall of chest wall noted. no s/sx of pain or discomfort. safety meaures remain in place, pt remains in view. no changes noted at this time
[2022-09-21] MEDS ORDERED: LORazepam 1 MG TABLET PO ONE (17:00)
--- NOTE | 2022-09-21 17:06 | NUR ---
PT SCARED AND AGITATED, PRIMARY RN MADE AWARE
[2022-09-21] MEDS ORDERED: DIPHENHYDRAMINE INJ 50 MG/ML VIAL IM ONE (17:15)
[2022-09-21] MEDS ORDERED: HALOPERIDOL LACTATE 5 MG/ML VIAL IM ONE (17:15)
--- NOTE | 2022-09-21 17:25 | NUR ---
PT ANXIOUS, WALKING AROUND IN HALLWAY. INFORMED PT TO STAY IN ROOM.
--- NOTE | 2022-09-21 18:05 | NUR ---
REPORT CALLED TO [facility], PT LAYING IN ROOM COMFORTABLE. NO ACUTE DISTRESS. WILL CONTINUE TO MONITOR
--- NOTE | 2022-09-21 19:30 | NUR ---
PT TRANSFERRED TO [facility]. REPORT GIVEN TO EMS, IV TAKEN OUT, V/S, PT STABLE
== END 2022-09-21 19:28 ==
LOC: SED 00:27
DX: T14.91XA Suicide attempt, initial encounter (principal); F32.A Depression, unspecified; E11.9 Type 2 diabetes mellitus without complications; Z88.1 Allergy status to other antibiotic agents; Z88.5 Allergy status to narcotic agent; Z79.4 Long term (current) use of insulin; Z79.899 Other long term (current) drug therapy; Z20.822 Contact with and (suspected) exposure to COVID-19; X83.8XXA Intentional self-harm by other specified means, initial encounter; Y93.89 Activity, other specified; Y92.89 Other specified places as the place of occurrence of the external cause; Y99.8 Other external cause status
CPT/HCPCS: 99285; 96374; 71045; 96361; 87426; 80307; 80053; 82962; 85025; 36415; 93005; 96376; 96372; G0482; J2060; J7030; J3490; J1200; J1630; J0780; G0480; G0481